=== PATIENT | female | born 1965 | race Caucasian/White ===

== ENCOUNTER 2016-09-05 10:34 | Day surgery (SDC) | payer OTHER ==
[2016-09-05] MEDS ORDERED: LACTATED RINGERS 1,000 ML IV ONE (11:07)
[2016-09-05] MEDS ORDERED: fentaNYL 250 MCG/5 ML VIAL IVP ONE (12:20)
[2016-09-05] MEDS ORDERED: ONDANSETRON 4 MG/2 ML VIAL IVP ONE (12:20)
[2016-09-05] MEDS ORDERED: MIDAZOLAM 2 MG/2 ML VIAL IVP ONE (12:20)
== END 2016-09-05 10:35 | disposition home or self-care (01) ==
PROC: 0DBP8ZX Excision of Rectum, Via Natural or Artificial Opening Endoscopic, Diagnostic (ICD-10-PCS; principal; 2016-09-05 12:00)
DX: Z12.11 Encounter for screening for malignant neoplasm of colon (principal); K62.1 Rectal polyp; K64.4 Residual hemorrhoidal skin tags; K64.8 Other hemorrhoids; F32.9 Major depressive disorder, single episode, unspecified; F17.210 Nicotine dependence, cigarettes, uncomplicated; I10 Essential (primary) hypertension; J45.909 Unspecified asthma, uncomplicated
CPT/HCPCS: 45380; J3010; J7120

== ENCOUNTER 2017-04-09 08:03 | Outpatient (CLI) | payer OTHER ==
[2017-04-09 12:51] LABS: ALBUMIN/GLOBULIN RATIO 1.4 (1.0-2.2); BILIRUBIN,TOTAL 0.6 mg/dL (0.2-1.0); BUN - BLOOD UREA NITROGEN 19 mg/dL (6-20); CARBON DIOXIDE - CO2 25 mmol/L (21-32); CHLORIDE 106 mmol/L (101-111); CHOL/HDL RATIO 3.8 (<4.4); CHOLESTEROL 188 mg/dL; CREATININE 0.8 mg/dL (0.4-1.0); GFR - MDRD 76 (>89); GLUCOSE 120 mg/dL (70-100); HDL CHOLESTEROL 50 mg/dL; LDL/HDL RATIO 2.4 (<4.4); SODIUM 138 mmol/L (135-145); TOTAL PROTEIN 7.3 g/dL (6.7-8.2); TRIGLYCERIDES 93 mg/dL; VLDL CHOLESTEROL 19 mg/dL
[2017-04-09 12:53] LABS: BASOPHILS % (AUTO) 0.3 %; EOSINOPHILS # (AUTO) 0.3 10^3/uL (0.0-0.7); EOSINOPHILS % (AUTO) 3.3 %; HCT - HEMATOCRIT 42.6 % (37.0-47.0); HGB - HEMOGLOBIN 14.5 g/dL (12.0-16.0); LYMPHOCYTES # (AUTO) 2.4 10^3/uL (1.5-3.5); LYMPHOCYTES % (AUTO) 32.1 %; MEAN CORPUSCULAR HEMOGLOBIN 30.2 pg (27.0-31.0); MEAN CORPUSCULAR HGB CONC 34.1 g/dL (32.0-36.0); MEAN CORPUSCULAR VOLUME 88.5 fL (81.0-99.0); MONOCYTES # (AUTO) 0.4 10^3/uL (0.0-1.0); MONOCYTES % (AUTO) 5.8 %; NEUTROPHILS # (AUTO) 4.4 10^3/uL (1.5-6.6); NEUTROPHILS % (AUTO) 58.5 %; NUCLEATED RED BLOOD CELLS AUTO 0.1 /100WBC; RED BLOOD COUNT 4.82 10^6/uL (4.20-5.40); UNCORRECTED WHITE BLOOD COUNT 7.6 x10^3/uL; WHITE BLOOD COUNT 7.6 x10^3/uL (4.8-10.8)
[2017-04-09 13:00] LABS: THYROID STIMULATING HORMONE 2.99 uIU/mL (0.34-5.60)
[2017-04-09 13:03] LABS: HEMOGLOBIN A1C 0.62 g/dL
[2017-04-09 13:07] LABS: FERRITIN 83.6 ng/mL (11.0-306.8); TOTAL T3 1.81 ng/mL (0.87-1.78)
== END 2017-04-09 08:04 | disposition home or self-care (01) ==
LOC: LAB.F 08:03
PROVIDERS: ATTEND Family Medicine
DX: Z00.00 Encounter for general adult medical examination without abnormal findings (principal); R53.83 Other fatigue; E03.9 Hypothyroidism, unspecified; E55.9 Vitamin D deficiency, unspecified
CPT/HCPCS: 36415; 80053; 80061; 82306; 82728; 83036; 84439; 84443; 84480; 84481; 84482; 85025

== ENCOUNTER 2017-08-20 08:37 | Outpatient (CLI) | payer OTHER ==
--- NOTE | 2017-08-20 12:43 | XRAY Report ---
THREE VIEW LEFT FOOT: 08/20/2017 CLINICAL INDICATION: Arthritis. FINDINGS: AP, lateral, and oblique views of the left foot demonstrate no evidence of fracture or dislocation. Mild degenerative changes are seen in the first metatarsophalangeal joint, and small plantar and posterior calcaneal spurs are present. No foreign body is seen in the soft tissues. IMPRESSION: MILD OSTEOARTHRITIS. TD: 08/20/2017 12:42
--- NOTE | 2017-08-20 12:44 | XRAY Report ---
THREE VIEW LEFT ANKLE: 08/20/2017 CLINICAL INDICATION: Arthritis, pain. FINDINGS: AP, lateral, oblique views of the left ankle demonstrate no evidence of fracture or dislocation. Plantar and posterior calcaneal spurring is present. No effusion is seen. No foreign body is appreciated. IMPRESSION: CALCANEAL SPURRING. NO EVIDENCE OF FRACTURE. TD: 08/20/2017 12:44
== END 2017-08-20 08:38 | disposition home or self-care (01) ==
LOC: DI.S 08:37
PROVIDERS: ATTEND Family Medicine
DX: M19.072 Primary osteoarthritis, left ankle and foot (principal); M77.32 Calcaneal spur, left foot

== ENCOUNTER 2017-09-21 10:27 | Emergency (ER) | payer OTHER ==
[2017-09-21 10:37] VITALS: BP 132/82
[2017-09-21] MEDS ORDERED: LIDOCAINE-EPINEPH-TETRACAINE 3 ML SYRINGE TOP STA (10:51)
[2017-09-21] MEDS ORDERED: TETANUS/DIPHTHERIA/PERTUSSIS 0.5 ML SYRINGE IM ONE (10:51)
--- NOTE | 2017-09-21 11:07 | ED Physician Documentation ---
History of Present Illness - Stated complaint Stated Complaint: HAND LAC - Chief complaint Chief Complaint: Laceration - Additonal information Additional information: hx from pt lac to dominant R hand over radial/palmar aspect head 2nd with a sharp kitchen knife while cutting broccoli tdap not up to date Review of Systems Skin: reports: Laceration (s) PD PAST MEDICAL HISTORY - Past Medical History Past Medical History: Yes Cardiovascular: Hypertension Respiratory: Asthma Endocrine/Autoimmune: None GI: None : None HEENT: None Psych: Depression Musculoskeletal: None Derm: None - Past Surgical History Past Surgical History: Yes Ortho: Arthroscopic surgery, Carpal Tunnel surgery - Present Medications Home Medications: Ambulatory Orders Medication Instructions Recorded Confirmed Albuterol 2.5 mg INH Q4H PRN 04/03/13 09/21/17 Diclofenac Sodium 75 mg PO DAILY 04/03/13 09/21/17 Potassium Chloride 20 meq PO DAILY 04/03/13 09/21/17 hydroCHLOROthiazide [Hydrodiuril] 25 mg PO DAILY 04/03/13 09/21/17 Citalopram [CeleXA] 10 mg PO ONCE 09/21/17 09/21/17 - Allergies Allergies/Adverse Reactions: Allergies Allergy/AdvReac Type Severity Reaction Status Date / Time erythromycin base Allergy Intermediate Hives Verified 09/21/17 10:44 [Erythromycin Base] paroxetine HCl * [From Paxil] AdvReac Intermediate Emesis Verified 09/21/17 10: 44 - Social History Does the pt smoke?: No Smoking Status: Never smoker Does the pt drink ETOH?: No Does the pt have substance abuse?: No - Immunizations Immunizations are current?: Yes - POLST Patient has POLST: No PD ED PE NORMAL - Vitals Vital signs reviewed: Yes - Extremities Extremities: Other (1.5 cm very sharp and clean lac to hand in region palmar radial 2nd MC head, MSV and tendon fxn intact, no FB seen or palp) Results - Vitals Vitals: Vital Signs - 24 hr 09/21/17 10:30 Temperature 36.2 C L Heart Rate 81 Respiratory 16 Rate Blood Pressure 132/82 H O2 Saturation 98 Oxygen O2 Source Room air Procedures - Laceration (location) hand Length in cm: 1.5 Wound type: Linear Neurovascular status: Sensory intact, Motor intact Tendon involvement: Tendon intact Anesthesia: LET Wound Preparation: Irrigated copiously NS (by SOA INTEGRATION ARCHITECT) Skin layer closure: Dermabond Other: Patient tolerated well, No complications, Neurovascular intact, Tetanus booster given Complexity: Simple Departure - Departure Disposition: 01 Home, Self Care Clinical Impression: Laceration Condition: Good Instructions: ED Laceration Ext Skin Glue Comments: The wound appears very clean and was carefully washed out. However, any cut has the potential for infection to develop - if you notice excessive redness swelling pain or any discharge please come back to the ED. The skin glue will gradually flake off over about 10 days You may shower and wash your hands Do not apply any lotion or ointment as that will dissolve the glue Let your PMD know you got a tetanus booster so your records can be updated
== END 2017-09-21 12:20 | disposition home or self-care (01) ==
LOC: ED 10:27
DX: S61.411A Laceration without foreign body of right hand, initial encounter (principal); W26.0XXA Contact with knife, initial encounter; Y93.G1 Activity, food preparation and clean up; I10 Essential (primary) hypertension; Z23 Encounter for immunization
CPT/HCPCS: 1040M; 12001; 90471; 90715; 99282; 99283

== ENCOUNTER 2018-06-16 08:10 | Outpatient (CLI) | payer OTHER ==
--- NOTE | 2018-06-17 09:01 | Mammography Report ---
Reason: SCREENING MAMMO Procedure Date: 06/16/2018 Accession Number: [id number] / [id number] Procedure: JULIANNA - Screening Mammo w/Alvin CPT Code: FULL RESULT: EXAM: Screening Mammo w/Alvin DATE: 06/16/2018 8:47 AM CLINICAL HISTORY: Screening encounter. History of nulliparity. TECHNIQUE: Bilateral CC and MLO views were obtained. COMPARISON: 03/25/2016 through 05/03/2009. FINDINGS: The breasts demonstrate scattered fibroglandular densities bilaterally. No suspicious masses, clustered microcalcifications, or regions of architectural distortion are identified. IMPRESSION: Negative examination RECOMMENDATION: Routine annual screening unless otherwise clinically indicated. BIRADS CATEGORY 1: Negative STANDARD QUALIFYING STATEMENTS: 1. This examination was not reviewed with the aid of Computer-Aided Detection (CAD). 2. A negative or benign imaging report should not preclude biopsy if clinically suspicious findings are present. 3. Dense breasts may obscure an underlying neoplasm. 4. This examination was reviewed with the aid of 3D breast imaging (tomosynthesis).
== END 2018-06-16 08:11 | disposition home or self-care (01) ==
LOC: DI 08:10
DX: Z12.31 Encounter for screening mammogram for malignant neoplasm of breast (principal)
CPT/HCPCS: 77063; 77067

== ENCOUNTER 2018-07-28 10:02 | Outpatient (CLI) | payer OTHER ==
--- NOTE | 2018-07-28 16:21 | XRAY Report ---
Reason: PAIN IN LEFT ANKLE Procedure Date: 07/28/2018 Accession Number: [id number] / [id number] Procedure: XR - Ankle 3 View LT CPT Code: FULL RESULT: EXAM: LEFT ANKLE RADIOGRAPHY EXAM DATE: 07/28/2018 10:21 AM. CLINICAL HISTORY: Left ankle acute pain on chronic pain. COMPARISON: ANKLE 3 VIEW LT 08/20/2017 9:14 AM. TECHNIQUE: 3 views. FINDINGS: Bones: The small calcaneus plantar spur again noted, similar to the prior exam. No new fractures or bone lesions. Joints: No effusion. No subluxations. The ankle mortise is normally aligned. Soft Tissues: New small calcification posterior to calcaneus of the Achilles tendon attachment visualized, focal degenerative process. No soft tissue swelling. IMPRESSION: Negative for fracture or subluxation in the left ankle radiography. RADIA
== END 2018-07-28 10:03 | disposition home or self-care (01) ==
LOC: DI 10:02
PROVIDERS: ATTEND Nurse Practitioner Family
DX: M25.572 Pain in left ankle and joints of left foot (principal)

== ENCOUNTER 2018-12-15 08:00 | Outpatient (CLI) | payer OTHER | END 2018-12-15 23:59 | disposition home or self-care (01) | LOC: LAB.R 08:00 | PROVIDERS: ATTEND Registered Nurse | DX: J06.9 Acute upper respiratory infection, unspecified (principal) | CPT/HCPCS: 87070 ==

== ENCOUNTER 2018-12-30 07:10 | Outpatient (CLI) | payer OTHER ==
[2018-12-30 11:34] LABS: BASOPHILS % (AUTO) 0.5 %; EOSINOPHILS # (AUTO) 0.2 10^3/uL (0.0-0.7); EOSINOPHILS % (AUTO) 2.6 %; HGB - HEMOGLOBIN 14.9 g/dL (12.0-16.0); LYMPHOCYTES # (AUTO) 2.2 10^3/uL (1.5-3.5); LYMPHOCYTES % (AUTO) 26.7 %; MEAN CORPUSCULAR HEMOGLOBIN 29.7 pg (27.0-31.0); MEAN CORPUSCULAR HGB CONC 32.5 g/dL (32.0-36.0); MEAN CORPUSCULAR VOLUME 91.4 fL (81.0-99.0); MEAN PLATELET VOLUME 9.5 fL (7.9-10.8); MONOCYTES # (AUTO) 0.5 10^3/uL (0.0-1.0); MONOCYTES % (AUTO) 5.8 %; NEUTROPHILS # (AUTO) 5.1 10^3/uL (1.5-6.6); NEUTROPHILS % (AUTO) 63.3 %; PLT - PLATELET COUNT 242 10^3/uL (130-450); RED BLOOD COUNT 5.01 10^6/uL (4.20-5.40); RED CELL DISTRIBUTION WIDTH 13.2 % (12.0-15.0); WHITE BLOOD COUNT 8.1 x10^3/uL (4.8-10.8)
[2018-12-30 11:38] LABS: ALBUMIN 4.1 g/dL (3.2-5.5); ALBUMIN/GLOBULIN RATIO 1.2 (1.0-2.2); ALKALINE PHOSPHATASE 59 IU/L (42-121); ALT ALANINE AMINOTRANSFERASE 27 IU/L (10-60); AST ASPARTATE AMINOTRANSFERASE 21 IU/L (10-42); BILIRUBIN,TOTAL 0.6 mg/dL (0.2-1.0); BUN - BLOOD UREA NITROGEN 27 mg/dL (6-20); CALCIUM 9.1 mg/dL (8.5-10.3); CARBON DIOXIDE - CO2 25 mmol/L (21-32); CHLORIDE 100 mmol/L (101-111); CHOL/HDL RATIO 4.7 (<4.4); CHOLESTEROL 207 mg/dL; GFR - MDRD 58 (>89); GLUCOSE 119 mg/dL (70-100); HDL CHOLESTEROL 44 mg/dL; LDL CHOLESTEROL,CALCULATED 134 mg/dL; SODIUM 138 mmol/L (135-145); TOTAL PROTEIN 7.6 g/dL (6.7-8.2); VLDL CHOLESTEROL 29 mg/dL
[2018-12-30 11:46] LABS: HB2 TOTAL 15.4 g/dL; HEMOGLOBIN A1C 0.68 g/dL; HEMOGLOBIN A1C % 6.2 % (4.6-6.2)
== END 2018-12-30 07:11 | disposition home or self-care (01) ==
LOC: LAB.F 07:10
PROVIDERS: ATTEND Registered Nurse
DX: I10 Essential (primary) hypertension (principal); Z79.899 Other long term (current) drug therapy; E66.01 Morbid (severe) obesity due to excess calories; Z13.220 Encounter for screening for lipoid disorders; J06.9 Acute upper respiratory infection, unspecified; Z72.0 Tobacco use
CPT/HCPCS: 36415; 80053; 80061; 83036; 83721; 84443; 85025

== ENCOUNTER 2019-03-07 11:49 | Emergency (ER) | payer OTHER ==
--- NOTE | 2019-03-07 12:37 | ED Physician Documentation ---
History of Present Illness - Stated complaint Stated Complaint: CHILLS,FEVER - Chief complaint Chief Complaint: Fever - History obtained from History obtained from: Patient - History of Present Illness Timing: How many days ago (5) Pain level max: 5 Pain level now: 4 Improved by: nothing Worsened by: sitting - Additonal information Additional information: 53-year-old female presents to the emergency department with a fever for the past 4 to 5 days. Denies any cough other than her normal smoker's cough. No changes to this. Occasional nausea but no vomiting. Did have diarrhea today. No travel. She is also noticed a swelling to her anal area, states it feels like a hemorrhoid. She states she has never had hemorrhoids before. Worse with sitting, nothing makes it better. Review of Systems Constitutional: reports: Fever Respiratory: reports: Cough (chronic, unchanged) GI: denies: Vomiting, Hematemesis, Bloody / black stool : denies: Dysuria Skin: denies: Rash Musculoskeletal: denies: Neck pain, Back pain Neurologic: denies: Headache PD PAST MEDICAL HISTORY - Past Medical History Past Medical History: Yes Cardiovascular: Hypertension Respiratory: Asthma Neuro: None Endocrine/Autoimmune: None GI: None SECTION [employer] WARDEN: None : None HEENT: None Psych: Depression Musculoskeletal: None Derm: None - Past Surgical History Past Surgical History: Yes Ortho: Arthroscopic surgery, Carpal Tunnel surgery /SECTION [employer]: Dilation and currettage - Present Medications Home Medications: Ambulatory Orders Medication Instructions Recorded Confirmed Albuterol 2.5 mg INH Q4H PRN 04/03/13 09/21/17 Diclofenac Sodium 75 mg PO DAILY 04/03/13 09/21/17 Potassium Chloride 20 meq PO DAILY 04/03/13 09/21/17 hydroCHLOROthiazide [Hydrodiuril] 25 mg PO DAILY 04/03/13 09/21/17 Citalopram [CeleXA] 10 mg PO ONCE 09/21/17 09/21/17 Clindamycin HCl [Clindamycin 300MG 300 mg PO Q6H #40 capsule 03/07/19 CAP] Hydrocodone/Acetaminophen 1 - 2 each PO Q6H PRN #14 tablet 03/07/19 [Hydrocodon-Acetaminophen 5-325] - Allergies Allergies/Adverse Reactions: Allergies Allergy/AdvReac Type Severity Reaction Status Date / Time erythromycin base Allergy Intermediate Hives Verified 03/07/19 11:56 [Erythromycin Base] paroxetine HCl * [From Paxil] AdvReac Intermediate Emesis Verified 03/07/19 11:56 - Social History Does the pt smoke?: No Smoking Status: Never smoker Does the pt drink ETOH?: No Does the pt have substance abuse?: No - Immunizations Immunizations are current?: Yes - POLST Patient has POLST: No PD ED PE NORMAL - Vitals Vital signs reviewed: Yes - General General: Alert and oriented X 3, No acute distress, Well developed/nourished - HEENT HEENT: PERRL, Moist mucous membranes - Neck Neck: Supple, no meningeal sign - Cardiac Cardiac: RRR, Strong equal pulses - Respiratory Respiratory: No respiratory distress, Other (wheezing B) - Abdomen Abdomen: Soft, Non tender, Non distended - Rectal Rectal: Other (fluctuant swelling to the L upper anal area, TTP on digital rectal exam as well.) - Derm Derm: Warm and dry - Extremities Extremities: No edema - Neuro Neuro: Alert and oriented X 3 - Psych Psych: Normal mood, Normal affect Results - Vitals Vitals: Vital Signs - 24 hr 03/07/19 03/07/19 03/07/19 11:53 13:00 14:10 Temperature 36.5 C Heart Rate 100 99 90 Respiratory 19 16 18 Rate Blood Pressure 150/87 H 129/83 H O2 Saturation 95 95 03/07/19 15:13 Temperature Heart Rate 87 Respiratory 19 Rate Blood Pressure 122/77 O2 Saturation 94 Oxygen O2 Source Room air - Labs Labs: Microbiology 03/07/19 14:53 Wound Culture - Preliminary Abscess Laboratory Tests 03/07/19 03/07/19 12:40 12:40 WBC 13.7 H RBC 4.62 Hgb 13.9 Hct 41.9 MCV 90.7 MCH 30.1 MCHC 33.2 RDW 12.3 Plt Count 224 MPV 9.0 Neut # (Auto) 9.7 H Lymph # (Auto) 2.7 Bandera # (Auto) 1.0 Eos # (Auto) 0.1 Baso # (Auto) 0.1 Absolute Nucleated RBC 0.00 Nucleated RBC % 0.0 Sodium 139 Potassium 3.7 Chloride 103 Carbon Dioxide 26 Anion Gap 10.0 BUN 17 Creatinine 0.8 Estimated GFR (MDRD) 75 L Glucose 96 Calcium 9.0 Total Bilirubin 0.7 AST 19 ALT 28 Alkaline Phosphatase 58 Total Protein 7.4 Albumin 3.8 Globulin 3.6 Albumin/Globulin Ratio 1.1 Lipase 41 - Rads (name of study) CT abdomen pelvis Radiology: Prelim report reviewed, EMP read contemporaneously, See rad report (Perianal loculated fluid collection measuring 3.9 x 4.0 cm posteriorly on the left. 2. No intraperitoneal abscess or fluid collection within the pelvis. ) Procedures - Abscess I&D (location) Perianal Preparation: Chlorhexadine, Lidocaine 2 %, With epi Incision: Incised with scalpel, Purulent drainage, Loculations broken, Packed, Culture obtained Other: Pt tolerated well, Dressing applied, Antibiotic prescribed PD MEDICAL DECISION MAKING - ED course Complexity details: reviewed results, re-evaluated patient, considered differential, d/w patient, d/w plan consultant ED course: Patient with a perianal abscess. Discussed the case with Dr. Huntley, general surgery who recommends bedside drainage. She recommends following up in the office later this week for repeat evaluation. Patient was having fevers the past few days, therefore IV antibiotics were given. Will place on oral anti biotics for home as well. She is very well-appearing, nontoxic. Afebrile. No hypoxia. No evidence of sepsis. Patient counseled regarding signs and symptoms for which I believe and urgent re-evaluation would be necessary. Patient with good understanding of and agreement to plan and is comfortable going home at this time This document was made in part using voice recognition software. While efforts are made to proofread this document, sound alike and grammatical errors may occur. Departure - Departure Disposition: 01 Home, Self Care Clinical Impression: Perianal abscess Condition: Good Instructions: ED Abscess IandD Follow-Up: Maria L Rosario ARNP [Primary Care Provider] - Poonam Huntley MD [Provider Admit Priv/Credential] - Within 3 Days Prescriptions: Clindamycin HCl [Clindamycin 300MG CAP] 300 mg PO Q6H #40 capsule Hydrocodone/Acetaminophen [Hydrocodon-Acetaminophen 5-325] 1 - 2 each PO Q6H PRN #14 tablet PRN Reason: pain Comments: Take all antibiotics until gone. Return if you worsen. Follow-up with Dr. Huntley within the next 3 days for a wound check. You should also perform sitz bath or rinse with warm water and a hand-held shower for 5 to 10 minutes at a time 3-4 times daily. Do not drink alcohol or drive while on narcotic pain medicine. Note that many narcotic pain relievers also contain tylenol/acetaminophen. Please ensure that your total dose of acetaminophen from all sources does not exceed 3 grams (3000mg) per day. You may constipated on this medication, take a stool softener such as "Colace" twice a day while you are on it. Also recommend a [id number] laxative such as senna or MiraLAX any day that you do not have a bowel movement. If you received narcotic pain medication in the emergency department, do not drive or operate machinery for the next 24 hours. Discharge Date/Time: 03/07/19 15:15
[2019-03-07] MEDS ORDERED: IPRATROPIUM/ALBUTEROL 3 ML NEB INH STA (12:39)
[2019-03-07 12:47] LABS: BASOPHILS # (AUTO) 0.1 10^3/uL (0.0-0.1); BASOPHILS % (AUTO) 0.4 %; EOSINOPHILS # (AUTO) 0.1 10^3/uL (0.0-0.7); HGB - HEMOGLOBIN 13.9 g/dL (12.0-16.0); LYMPHOCYTES # (AUTO) 2.7 10^3/uL (1.5-3.5); LYMPHOCYTES % (AUTO) 19.6 %; MEAN CORPUSCULAR HEMOGLOBIN 30.1 pg (27.0-31.0); MEAN CORPUSCULAR HGB CONC 33.2 g/dL (32.0-36.0); MEAN CORPUSCULAR VOLUME 90.7 fL (81.0-99.0); MONOCYTES % (AUTO) 7.5 %; NEUTROPHILS # (AUTO) 9.7 10^3/uL (1.5-6.6); NEUTROPHILS % (AUTO) 70.8 %; PLT - PLATELET COUNT 224 10^3/uL (130-450); RED BLOOD COUNT 4.62 10^6/uL (4.20-5.40); RED CELL DISTRIBUTION WIDTH 12.3 % (12.0-15.0); WHITE BLOOD COUNT 13.7 x10^3/uL (4.8-10.8)
[2019-03-07] MEDS ORDERED: IOVERSOL 320 100 ML VIAL IVP ONE ×2 (12:52→13:09)
[2019-03-07 12:58] LABS: ALBUMIN 3.8 g/dL (3.2-5.5); ALBUMIN/GLOBULIN RATIO 1.1 (1.0-2.2); BILIRUBIN,TOTAL 0.7 mg/dL (0.2-1.0); CREATININE 0.8 mg/dL (0.4-1.0); TOTAL PROTEIN 7.4 g/dL (6.7-8.2)
[2019-03-07] MEDS ORDERED: CLINDAMYCIN 900 MG/50 ML 50 ML IV ONE (14:01)
--- NOTE | 2019-03-07 14:05 | CT Report ---
Reason: perirectal abscess, swelling, pain Procedure Date: 03/07/2019 Accession Number: [id number] / [id number] Procedure: CT - PELVIS W CPT Code: FULL RESULT: EXAM: CT PELVIS EXAM DATE: 03/07/2019 01:32 PM. CLINICAL HISTORY: Perirectal abscess, swelling, pain. COMPARISONS: None. TECHNIQUE: Routine helical CT imaging was performed through the pelvis. IV contrast: OPTI 320 90ML. Enteric contrast: No. Reconstructions: Coronal and sagittal. In accordance with CT protocol optimization, one or more of the following dose reduction techniques were utilized for this exam: automated exposure control, adjustment of mA and/or KV based on patient size, or use of iterative reconstructive technique. FINDINGS: Visualized Abdominal Organs: Normal. Peritoneal Cavity/Bowel: Normal. No free fluid, free air or adenopathy. No masses or acute inflammatory process. The appendix is well visualized and normal. Pelvic Organs: Normal. The bladder, rectum, and visualized pelvic organs are within normal limits. Vasculature: No aneurysms or other significant abnormality. Bones: No significant abnormality. Other: Perianal loculated fluid collection measuring 3.9 x 4.0 cm posteriorly on the left. IMPRESSION: 1. Perianal loculated fluid collection measuring 3.9 x 4.0 cm posteriorly on the left. 2. No intraperitoneal abscess or fluid collection within the pelvis. RADIA
[2019-03-07] MEDS ORDERED: LIDOCAINE 2%-EPI 1:100000 20 ML MDV SUBQ STA (14:21)
[2019-03-07 15:14] VITALS: BP 122/77
== END 2019-03-07 15:15 | disposition home or self-care (01) ==
LOC: ED 11:49
DX: K61.0 Anal abscess (principal); J45.909 Unspecified asthma, uncomplicated; I10 Essential (primary) hypertension
CPT/HCPCS: 36415; 46050; 72193; 80053; 83690; 85025; 87070; 87181; 87205; 94640; 96365; 99283; 99284; Q9967

== ENCOUNTER 2020-04-13 07:41 | Outpatient (CLI) | payer OTHER ==
[2020-04-13 15:28] LABS: BASOPHILS # (AUTO) 0.1 10^3/uL (0.0-0.1); BASOPHILS % (AUTO) 0.6 %; EOSINOPHILS # (AUTO) 0.3 10^3/uL (0.0-0.7); EOSINOPHILS % (AUTO) 3.9 %; HGB - HEMOGLOBIN 14.8 g/dL (12.0-16.0); LYMPHOCYTES # (AUTO) 2.8 10^3/uL (1.5-3.5); LYMPHOCYTES % (AUTO) 33.1 %; MEAN CORPUSCULAR HEMOGLOBIN 30.6 pg (27.0-31.0); MEAN CORPUSCULAR HGB CONC 33.6 g/dL (32.0-36.0); MEAN CORPUSCULAR VOLUME 91.3 fL (81.0-99.0); MEAN PLATELET VOLUME 9.9 fL (7.9-10.8); MONOCYTES # (AUTO) 0.6 10^3/uL (0.0-1.0); NEUTROPHILS # (AUTO) 4.6 10^3/uL (1.5-6.6); NEUTROPHILS % (AUTO) 54.9 %; PLT - PLATELET COUNT 240 10^3/uL (130-450); RED BLOOD COUNT 4.83 10^6/uL (4.20-5.40); RED CELL DISTRIBUTION WIDTH 12.9 % (12.0-15.0); WHITE BLOOD COUNT 8.4 x10^3/uL (4.8-10.8)
[2020-04-13 16:06] LABS: ALBUMIN/GLOBULIN RATIO 1.3 (1.0-2.2); ALKALINE PHOSPHATASE 56 IU/L (42-121); ALT ALANINE AMINOTRANSFERASE 23 IU/L (10-60); AST ASPARTATE AMINOTRANSFERASE 19 IU/L (10-42); BILIRUBIN,TOTAL 0.3 mg/dL (0.2-1.0); BUN - BLOOD UREA NITROGEN 24 mg/dL (6-20); CALCIUM 9.3 mg/dL (8.5-10.3); CARBON DIOXIDE - CO2 27 mmol/L (21-32); CHLORIDE 107 mmol/L (101-111); CHOL/HDL RATIO 4.8 (<4.4); CHOLESTEROL 200 mg/dL; CREATININE 0.9 mg/dL (0.4-1.0); GLUCOSE 106 mg/dL (70-100); HDL CHOLESTEROL 42 mg/dL; LDL CHOLESTEROL,CALCULATED 117 mg/dL; LDL/HDL RATIO 2.8 (<4.4); SODIUM 141 mmol/L (135-145); TOTAL PROTEIN 7.2 g/dL (6.7-8.2); VLDL CHOLESTEROL 41 mg/dL
== END 2020-04-13 07:42 | disposition home or self-care (01) ==
LOC: LAB.S 07:41
PROVIDERS: ATTEND Registered Nurse
DX: Z79.899 Other long term (current) drug therapy (principal); M19.90 Unspecified osteoarthritis, unspecified site; E66.01 Morbid (severe) obesity due to excess calories; F17.209 Nicotine dependence, unspecified, with unspecified nicotine-induced disorders; J44.9 Chronic obstructive pulmonary disease, unspecified; I10 Essential (primary) hypertension
CPT/HCPCS: 36415; 80053; 80061; 83721; 84443; 85025

== ENCOUNTER 2020-10-10 10:40 | Outpatient (CLI) | payer OTHER ==
--- NOTE | 2020-10-16 12:22 | Mammography Report ---
BILATERAL DIGITAL SCREENING MAMMOGRAM 3D/2D: 10/10/2020 CLINICAL: Routine screening. Routine screening. Comparison is made to exams dated: 06/16/2018 mammogram, 03/25/2016 mammogram, and 11/09/2014 mammogram - [facility]. There are scattered fibroglandular elements in both breasts. There is an oval equal density asymmetry with an indistinct margin in the left breast middle depth ce ntral to the nipple seen on the craniocaudal view only. No other significant masses, calcifications, or other findings are seen in either breast. IMPRESSION: INCOMPLETE: NEEDS ADDITIONAL IMAGING EVALUATION The oval equal density asymmetry in the left breast is indeterminate. Mediolateral and spot compress ion views as well as additional views with possible ultrasound are recommended. This exam was interpreted at Station ID: [id number]. NOTE: For mammograms, a report in lay terms will be sent to the patient. Approximately 15% of breast malignancies will not be visualized mammographically. In the management of a palpable breast mass, a negative mammogram must not discourage biopsy of a clinically suspicious lesion. Electronically Signed By: Inocencio Pichardo M.D. ddp/penrad:10/13/2020 17:12:21 ACR BI-RADS Category 0: Incomplete 3340F PARENCHYMAL PATTERN: (A) - The breast(s) demonstrate(s) scattered fibroglandular densities. BI-RADS CATEGORY: (0) - 0 Mammo and [place] [id number] Immediate follow-up LATERALITY: (B)
== END 2020-10-10 10:41 | disposition home or self-care (01) ==
LOC: DI.S 10:40
PROVIDERS: ATTEND Registered Nurse
DX: Z12.31 Encounter for screening mammogram for malignant neoplasm of breast (principal); N64.89 Other specified disorders of breast

== ENCOUNTER 2020-11-15 12:33 | Outpatient (CLI) | payer OTHER ==
--- NOTE | 2020-11-16 14:09 | Mammography Report ---
UNILATERAL LEFT DIGITAL DIAGNOSTIC MAMMOGRAM 3D/2D: 11/15/2020 CLINICAL: Patient returns today to evaluate an asymmetry in left breast. Comparison is made to exams dated: 10/10/2020 mammogram, 06/16/2018 mammogram, 03/25/2016 mammogram, an d 11/09/2014 mammogram - [facility]. There are scattered fibroglandular elements in left breast. There is an asymmetry in the left breast middle depth central to the nipple seen on the craniocaudal view only. This is not seen in additional views. No other significant masses or calcifications are seen in the breast. There has been no significant interval change. IMPRESSION: NEGATIVE There is no mammographic evidence of malignancy. The asymmetry in the left breast is consistent with fibroglandular tissue and is benign. A 1 year screening mammogram is recommended. This exam was interpreted at Station ID: [id number]. NOTE: For mammograms, a report in lay terms will be sent to the patient. Approximately 15% of breast malignancies will not be visualized mammographically. In the management of a palpable breast mass, a negative mammogram must not discourage biopsy of a clinically suspicious lesion. Electronically Signed By: Narayan Bettencourt M.D. slc/:11/15/2020 13:42:53 ACR BI-RADS Category 1: Negative 3341F PARENCHYMAL PATTERN: (A) - The breast(s) demonstrate(s) scattered fibroglandular densities. BI-RADS CATEGORY: (1) - 1 RECOMMENDATION: (ANNUAL) - Recommend routine annual screening mammography. [id number] 1 year screening LATERALITY: (B)
== END 2020-11-15 12:34 | disposition home or self-care (01) ==
LOC: DI 12:33
PROVIDERS: ATTEND Registered Nurse
DX: R92.8 Other abnormal and inconclusive findings on diagnostic imaging of breast (principal)

== ENCOUNTER 2021-08-24 07:43 | Outpatient (CLI) | payer OTHER ==
[2021-08-24 15:38] LABS: BASOPHILS % (AUTO) 0.4 %; EOSINOPHILS # (AUTO) 0.2 10^3/uL (0.0-0.7); EOSINOPHILS % (AUTO) 2.6 %; HCT - HEMATOCRIT 46.5 % (37.0-47.0); HGB - HEMOGLOBIN 15.3 g/dL (12.0-16.0); LYMPHOCYTES # (AUTO) 2.7 10^3/uL (1.5-3.5); LYMPHOCYTES % (AUTO) 32.4 %; MEAN CORPUSCULAR HEMOGLOBIN 29.5 pg (27.0-31.0); MEAN CORPUSCULAR HGB CONC 32.9 g/dL (32.0-36.0); MEAN CORPUSCULAR VOLUME 89.8 fL (81.0-99.0); MONOCYTES # (AUTO) 0.5 10^3/uL (0.0-1.0); MONOCYTES % (AUTO) 6.2 %; NEUTROPHILS # (AUTO) 4.9 10^3/uL (1.5-6.6); NEUTROPHILS % (AUTO) 57.9 %; PLT - PLATELET COUNT 245 10^3/uL (130-450); RED BLOOD COUNT 5.18 10^6/uL (4.20-5.40); RED CELL DISTRIBUTION WIDTH 13.4 % (12.0-15.0); WHITE BLOOD COUNT 8.4 x10^3/uL (4.8-10.8)
[2021-08-24 16:08] LABS: ALBUMIN 4.4 g/dL (3.2-5.5); ALBUMIN/GLOBULIN RATIO 1.3 (1.0-2.2); ALKALINE PHOSPHATASE 56 IU/L (42-121); ALT ALANINE AMINOTRANSFERASE 25 IU/L (10-60); AST ASPARTATE AMINOTRANSFERASE 20 IU/L (10-42); BILIRUBIN,TOTAL 0.5 mg/dL (0.2-1.0); BUN - BLOOD UREA NITROGEN 24 mg/dL (6-20); CALCIUM 9.3 mg/dL (8.5-10.3); CARBON DIOXIDE - CO2 27 mmol/L (21-32); CHLORIDE 101 mmol/L (101-111); CHOL/HDL RATIO 5.3 (<4.4); CHOLESTEROL 217 mg/dL; CREATININE 0.9 mg/dL (0.4-1.0); GFR - MDRD 65 (>89); GLUCOSE 121 mg/dL (70-100); HDL CHOLESTEROL 41 mg/dL; LDL CHOLESTEROL,CALCULATED 144 mg/dL; LDL/HDL RATIO 3.5 (<4.4); POTASSIUM 4.1 mmol/L (3.5-5.0); SODIUM 137 mmol/L (135-145); TOTAL PROTEIN 7.7 g/dL (6.7-8.2); TRIGLYCERIDES 158 mg/dL; VLDL CHOLESTEROL 32 mg/dL
[2021-08-24 16:28] LABS: THYROID STIMULATING HORMONE 2.79 uIU/mL (0.34-5.60)
[2021-08-25 09:27] LABS: HEPATITIS C ANTIBODY NON-REACTIVE (NON-REACTIVE)
== END 2021-08-24 07:44 | disposition home or self-care (01) ==
LOC: LAB.S 07:43
PROVIDERS: ATTEND Registered Nurse
DX: Z00.00 Encounter for general adult medical examination without abnormal findings (principal); I10 Essential (primary) hypertension; F32.A Depression, unspecified; E66.01 Morbid (severe) obesity due to excess calories; Z79.899 Other long term (current) drug therapy; F43.10 Post-traumatic stress disorder, unspecified; J44.9 Chronic obstructive pulmonary disease, unspecified; F17.200 Nicotine dependence, unspecified, uncomplicated
CPT/HCPCS: 36415; 80053; 80061; 83721; 84443; 85025; 86803

== ENCOUNTER 2021-08-24 08:00 | Outpatient (CLI) | payer OTHER ==
--- NOTE | 2021-08-24 10:38 | XRAY Report ---
PROCEDURE: Lumbar Spine 2 View INDICATIONS: LEFT SCIATICA TECHNIQUE: 2 views of the lumbar spine were acquired. COMPARISON: CT abdomen and pelvis 04/03/2013. FINDINGS: Bones: 5 [id number] vertebrae are present. There is normal bony alignment. No vertebral body compression fractures. Small vertebral body osteophytes. No suspicious bony lesions. Soft tissues: Overlying bowel gas pattern is normal. No suspicious soft tissue calcifications. IMPRESSION: Mild degenerative change in the lumbar spine. Reviewed by: Narayan Bettencourt MD on 08/24/2021 10:37 AM [facility] Approved by: Narayan Bettencourt MD on 08/24/2021 10:37 AM [facility] Station ID: [id number]
== END 2021-08-24 23:59 | disposition home or self-care (01) ==
LOC: DI.S 08:00
PROVIDERS: ATTEND Registered Nurse
DX: M54.32 Sciatica, left side (principal); M47.26 Other spondylosis with radiculopathy, lumbar region; Z00.00 Encounter for general adult medical examination without abnormal findings; I10 Essential (primary) hypertension; F32.A Depression, unspecified; E66.01 Morbid (severe) obesity due to excess calories; Z79.899 Other long term (current) drug therapy; F43.10 Post-traumatic stress disorder, unspecified; J44.9 Chronic obstructive pulmonary disease, unspecified; F17.200 Nicotine dependence, unspecified, uncomplicated
CPT/HCPCS: 36415; 80053; 80061; 83721; 84443; 85025; 86803